=== PATIENT | female | born 1985 | race Two or more races ===

== ENCOUNTER 2017-01-04 15:43 | Emergency (ER) | payer OTHER | END 2017-01-04 16:21 | disposition home or self-care (01) | LOC: CED 15:43 | DX: R04.0 Epistaxis (principal); V03.00XD Pedestrian on foot injured in collision with car, pick-up truck or van in nontraffic accident, subsequent encounter; Z53.21 Procedure and treatment not carried out due to patient leaving prior to being seen by health care provider ==